=== PATIENT | male | born 1955 | race Caucasian/White ===

== ENCOUNTER 2016-05-08 18:01 | Inpatient (IN) | payer OTHER ==
[2016-05-08 19:16] VITALS: BMI 29.8
--- NOTE | 2016-05-08 20:15 | HP ---
CIWA Score - CIWA Score Nausea/Vomitin-No Nausea/No Vomiting Muscle Tremors: 4-Moderate,w/Arms Extend Anxiety: 4-Mod. Anxious/Guarded Agitation: 3 Paroxysmal Sweats: 3 Orientation: 0-Oriented Tacttile Disturbances: 3-Moderate Itch/Numb/Burn Auditory Disturbances: 0-None Visual Disturbances: 0-None Headache: 0-None Present CIWA-Ar Total Score: 17 Admission ROS BHS - HPI Chief Complaint: WITHDRAWAL SX'S. SEEKING DETOX Allergies/Adverse Reactions: Allergies Allergy/AdvReac Type Severity Reaction Status Date / Time No Known Allergies Allergy Verified 05/08/16 20:09 History of Present Illness: 60 Y.O. MALE WITH EXTENSIVE H/O ALCOHOLISM ADMITTED FOR DETOX TXMENT. CLIENT IS KNOWN TO [facility]. LAST DETOX 2014. DENIES ANY SIGNIFICANT PERIOD OF CLEAN TIME. CLIENT INFORMED LOS FOR TXMENT IS AOUT 5 DAYS. CLIENT VERBALIZED UNDERSTANDING. Exam Limitations: No Limitations - Ebola screening Have you traveled outside of the country in the last 21 days: No Have you had contact with anyone from an Ebola affected area: No Have you been sick,other than usual withdrawal symptoms: No Do you have a fever: No - Review of Systems Constitutional: Chills EENT: reports: No Symptoms Reported Respiratory: reports: No Symptoms reported Cardiac: reports: No Symptoms Reported GI: reports: No Symptoms Reported : reports: No Symptoms Reported Musculoskeletal: reports: Back Pain Integumentary: reports: Dryness, Pruritus, Rash Neuro: reports: No Symptoms reported Endocrine: reports: No Symptoms Reported Hematology: reports: No Symptoms Reported Psychiatric: reports: No Sypmtoms Reported Other Systems: Reviewed and Negative Patient History - Patient Medical History Hx Anemia: No Hx Asthma: Yes (ALBUTEROL INHALER) Hx Chronic Obstructive Pulmonary Disease (COPD): No Hx Cancer: No Hx Cardiac Disorders: No Hx Congestive Heart Failure: No Hx Hypertension: No Hx Hypercholesterolemia: No Hx Pacemaker: No HX Cerebrovascular Accident: No Hx Seizures: No Hx Dementia: No Hx Diabetes: No Hx Gastrointestinal Disorders: No Hx Liver Disease: No Hx Genitourinary Disorders: No Hx Sexually Transmitted Disorders: No Hx Renal Disease (ESRD): No Hx Thyroid Disease: No Hx Human Immunodeficiency Virus (HIV): No (NEGATIVE HX) Hx Hepatitis C: No Hx Depression: No Hx Suicide Attempt: No Hx Bipolar Disorder: No Hx Schizophrenia: No Other Medical History: DENIES - Patient Surgical History Past Surgical History: No Hx Neurologic Surgery: No Hx Cataract Extraction: No Hx Cardiac Surgery: No Hx Lung Surgery: No Hx Breast Surgery: No Hx Breast Biopsy: No Hx Abdominal Surgery: No Hx Appendectomy: No Hx Cholecystectomy: No Hx Genitourinary Surgery: No Hx Section: No Hx Orthopedic Surgery: No Anesthesia Reaction: No - PPD History Previous Implant?: Yes Documented Results: Negative w/o proof Implanted On Prior [facility] Admission?: Yes Date: 08/15/14 PPD to be Administered?: Yes - Smoking Cessation Smoking history: Current every day smoker Have you smoked in the past 12 months: Yes Aproximately how many cigarettes per day: 20 Cigars Per Day: 0 Hx Chewing Tobacco Use: No Initiated information on smoking cessation: Yes 'Breaking Loose' booklet given: 05/08/16 - Substance & Tx. History Hx Alcohol Use: Yes Hx Substance Use: Yes Substance Use Type: Cocaine Hx Substance Use Treatment: Yes - Substances Abused BEER Route: Oral Frequency: Daily Amount used: 6-12 OZ Age of first use: 14 Date of Last Use: 05/08/16 COCAINE Route: Smoking Frequency: Daily Amount used: 50 DOLLARS Age of first use: 17 Date of Last Use: 05/07/16 Family Disease History - Family Disease History Family Disease History: Diabetes: Father (etoh dep.,HTN, ), Heart Disease: Father, Respiratory: Mother (), Other: Father, Mother, Brother ( DRUG OD) Admission Physical Exam BHS - Vital Signs Vital Signs: Vital Signs - 24 hr 05/08/16 19:13 Temperature 97.4 F L Pulse Rate 94 H Respiratory 18 Rate Blood Pressure 115/74 - Physical General Appearance: Yes: Disheveled, Mild Distress, Tremorous HEENTM: Yes: EOMI, Normocephalic, Normal Voice, PAULA, Pharynx Normal Neck: Yes: No masses,lesions,Nodules, Supple, Trachea in good position Breast: Yes: Breast Exam Deferred Cardiology: Yes: Regular Rhythm, Regular Rate, S1, S2 Abdominal: Yes: Normal Bowel Sounds, Non Tender, Soft Genitourinary: Yes: Within Normal Limits Back: Yes: Other (DRYNESS, PRURITIC RASH) Musculoskeletal: Yes: full range of Motion, Gait Steady Extremities: Yes: Normal Capillary Refill, Normal Range of Motion, Non-Tender, Tremors Neurological: Yes: scheme technician II-XII NML intact, Fully Oriented, Alert, Motor Strength 5/5 Integumentary: Yes: Dry, Warm, Hives (NOTE TO UPPER EXTREMITIES), Rash (DRY, PRURITIC RASH NOTED TO UE, BACK. PT REPORTS ALSO ON HIS THIGHS.) Lymphatic: Yes: Within Normal Limits - Diagnostic (1) Asthma Current Visit: Yes Status: Chronic (2) Cocaine dependence Current Visit: Yes Status: Chronic Qualifiers: Substance use status: uncomplicated Qualified Code(s): F14.20 - Cocaine dependence, uncomplicated (3) Nicotine dependence Current Visit: Yes Status: Chronic Qualifiers: Nicotine product type: cigarettes Substance use status: uncomplicated Qualified Code(s): F17.210 - Nicotine dependence, cigarettes, uncomplicated (4) Alcohol dependence with uncomplicated withdrawal Current Visit: Yes Status: Chronic Cleared for Admission [facility] - Detox or Rehab [facility] Level of Care: Medically Managed Detox Regimen/Protocol: Librium BHS Breath Alcohol Content Breath Alcohol Content: 0.058 Vital Signs - Vital Signs Vital Signs Refused: No Temperature: 97.4 F Temperature Source: Oral Pulse Rate: 94 Respiratory Rate: 18 Blood Pressure: 115/74 BP Location: Left Arm Blood Pressure Position: Sitting - Height Height: 6 ft 1 in - Weight Weight: 102.512 kg Weight Measurement Method: Standing Scale Body Mass Index (BMI): 29.8 Urine Drug Screen - Results Drug Screen Negative: No Urine Drug Screen Results: KAREEN-Cocaine
[2016-05-08] MEDS ORDERED: NICOTINE POLACRILEX 2 MG GUM BC PRN (20:26)
[2016-05-08] MEDS ORDERED: MAGNESIUM CITRATE 300 ML BOTTLE PO PRN (20:26)
[2016-05-08] MEDS ORDERED: MENTHOL/PHENOL 1 EACH UD MM PRN (20:26)
[2016-05-08] MEDS ORDERED: P-EPHED 60MG/TRIPROLIDI 2.5MG TABLET PO PRN (20:26)
[2016-05-08] MEDS ORDERED: MAGNESIUM HYDROX 2400MG/30ML ORAL SUSPENSION 30 ML CUP PO PRN (20:26)
[2016-05-08] MEDS ORDERED: ACETAMINOPHEN 325 MG TABLET (FP) PO PRN (20:26)
[2016-05-08] MEDS ORDERED: chlordiazePOXIDE HCL 25 MG CAPSULE PO PRN (20:26)
[2016-05-08] MEDS ORDERED: LOPERAMIDE HCL 2 MG CAPSULE PO PRN (20:26)
[2016-05-08] MEDS ORDERED: guaiFENesin/D-METHORPHAN HB 10 ML UNIT-DOSE CUPS PO PRN (20:26)
[2016-05-08] MEDS ORDERED: IBUPROFEN 400 MG TABLET (FP) PO PRN (20:26)
[2016-05-08] MEDS ORDERED: hydrOXYzine PAMOATE 50 MG CAPSULE (FP) PO PRN (20:26)
[2016-05-08] MEDS ORDERED: HYDROCORTISONE 1% TOPICAL CREAM 30 GM TUBE TP PRN (20:28)
[2016-05-08] MEDS ORDERED: ALBUTEROL SO4 6.7 GM HFA INHALER IH PRN (20:28)
[2016-05-08] MEDS ORDERED: AMMONIUM LACTATE 12% LOTION 225 GM BOTTLE TP PRN (20:29)
[2016-05-08] MEDS: chlordiazePOXIDE HCL 25 MG CAPSULE PO SCH (22:14)
[2016-05-08] MEDS: NICOTINE 21 MG/24 HOURS TOPICAL PATCH TD SCH (22:15)
[2016-05-08] MEDS: diphenhydrAMINE HCL 50 MG CAPSULE PO PRN (22:15)
[2016-05-08] MEDS: THIAMINE HCL 100 MG TABLET (FP) PO SCH (22:15)
[2016-05-09] MEDS: chlordiazePOXIDE HCL 25 MG CAPSULE PO SCH ×4 (05:45→22:13)
--- NOTE | 2016-05-09 09:45 | EKG ---
Test Reason : Blood Pressure : / mmHG Vent. Rate : 078 BPM Atrial Rate : 078 BPM P-R Int : 166 ms QRS Dur : 104 ms QT Int : 364 ms P-R-T Axes : 064 -42 072 degrees QTc Int : 414 ms NORMAL SINUS RHYTHM LEFT AXIS DEVIATION SEPTAL INFARCT , AGE UNDETERMINED ABNORMAL ECG NO PREVIOUS ECGS AVAILABLE POOR DATA QUALITY, INTERPRETATION MAY BE ADVERSELY AFFECTED Confirmed by JHON EVANS MD ([id number]) on 05/09/2016 9:44:42 AM Referred By: Confirmed By:JHON EVANS MD
[2016-05-09 10:16] LABS: MCH 31.9 pg (25.7-33.7); MCHC 32.9 g/dl (32.0-35.9); MEAN CELL VOLUME 97.1 fl (80-96); MEAN PLT VOLUME 12.1 fl (7.5-11.1); PLATELET COUNT 96 K/MM3 (134-434); RDW 15.5 % (11.9-15.9); WHITE BLOOD COUNT 6.6 K/mm3 (4.0-10.0)
[2016-05-09 10:22] LABS: URINE APPEARANCE CLEAR; URINE BILIRUBIN NEGATIVE (NEGATIVE); URINE BLOOD NEGATIVE (NEGATIVE); URINE COLOR YELLOW; URINE GLUCOSE (UA) NEGATIVE (NEGATIVE); URINE KETONE NEGATIVE (NEGATIVE); URINE NITRITE NEGATIVE (NEGATIVE); URINE PROTEIN NEGATIVE (NEGATIVE); URINE UROBILINOGEN NEGATIVE E.U./dl (0.2-1.0)
[2016-05-09 10:23] LABS: URINE LEUK ESTERASE 1+ (NEGATIVE)
[2016-05-09 10:24] LABS: URINE MUCUS RARE; URINE RBC 2 /hpf (0-3); URINE WBC 17 /hpf (3-5)
[2016-05-09] MEDS: PRENATAL VITAMINS W/ FOLIC ACID TABLET (FP) PO SCH (10:41)
[2016-05-09] MEDS: NICOTINE 21 MG/24 HOURS TOPICAL PATCH TD SCH (10:43)
[2016-05-09 10:50] LABS: ALBUMIN 3.2 g/dl (3.4-5.0); ALK PHOS 55 U/L (45-117); ANION GAP 9 (8-16); BILIRUBIN,TOTAL 0.5 mg/dL (0.2-1.0); CALCIUM 8.5 mg/dL (8.5-10.1); CO2 26 mmol/L (21-32); CREATININE 0.9 mg/dL (0.7-1.3); GLUCOSE,RANDOM 108 mg/dL (74-106); SGOT/AST 32 U/L (15-37); SGPT/ALT 36 U/L (12-78); TOT PROT 6.9 g/dl (6.4-8.2)
--- NOTE | 2016-05-09 11:56 | PN ---
[facility] CIWA - CIWA Score Nausea/Vomitin-No Nausea/No Vomiting Muscle Tremors: 4-Moderate,w/Arms Extend Anxiety: 4-Mod. Anxious/Guarded Agitation: 3 Paroxysmal Sweats: 3 Orientation: 0-Oriented Tacttile Disturbances: 0-None Auditory Disturbances: 0-None Visual Disturbances: 0-None Headache: 0-None Present CIWA-Ar Total Score: 14 S Progress Note (SOAP) Subjective: ANXIETY,TREMORS,SWEATING,INTERRUPTED SLEEP,RESTLESS. Objective: 05/09/16 11:52 Vital Signs - 8 hr 05/09/16 05/09/16 06:00 10:00 Temperature 97.9 F 97.9 F Pulse Rate 55 L 70 Respiratory 18 18 Rate Blood Pressure 108/60 120/70 Laboratory Last Values WBC 6.6 K/mm3 (4.0-10.0) 05/09/16 07:20 RBC 4.04 M/mm3 (4.00-5.60) 05/09/16 07:20 Hgb 12.9 GM/dL (11.7-16.9) 05/09/16 07:20 Hct 39.3 % (35.4-49) 05/09/16 07:20 MCV 97.1 fl (80-96) H 05/09/16 07:20 MCHC 32.9 g/dl (32.0-35.9) 05/09/16 07:20 RDW 15.5 % (11.9-15.9) 05/09/16 07:20 Plt Count 96 K/MM3 (134-434) L 05/09/16 07:20 MPV 12.1 fl (7.5-11.1) H 05/09/16 07:20 Sodium 141 mmol/L (136-145) 05/09/16 07:20 Potassium 4.2 mmol/L (3.5-5.1) 05/09/16 07:20 Chloride 106 mmol/L (98-107) 05/09/16 07:20 Carbon Dioxide 26 mmol/L (21-32) 05/09/16 07:20 Anion Gap 9 (8-16) 05/09/16 07:20 BUN 16 mg/dL (7-18) D 05/09/16 07:20 Creatinine 0.9 mg/dL (0.7-1.3) D 05/09/16 07:20 Creat Clearance w eGFR > 60 (>60) 05/09/16 07:20 Random Glucose 108 mg/dL (74-106) H D 05/09/16 07:20 Calcium 8.5 mg/dL (8.5-10.1) 05/09/16 07:20 Total Bilirubin 0.5 mg/dL (0.2-1.0) 05/09/16 07:20 AST 32 U/L (15-37) D 05/09/16 07:20 ALT 36 U/L (12-78) D 05/09/16 07:20 Alkaline Phosphatase 55 U/L (45-117) 05/09/16 07:20 Total Protein 6.9 g/dl (6.4-8.2) 05/09/16 07:20 Albumin 3.2 g/dl (3.4-5.0) L 05/09/16 07:20 Urine Color Yellow 05/09/16 07:20 Urine Appearance Clear 05/09/16 07:20 Urine pH 5.0 (5.0-8.0) 05/09/16 07:20 Ur Specific [place] 1.019 (1.001-1.035) 05/09/16 07:20 Urine Protein Negative (NEGATIVE) 05/09/16 07:20 Urine Glucose (UA) Negative (NEGATIVE) 05/09/16 07:20 Urine Ketones Negative (NEGATIVE) 05/09/16 07:20 Urine Blood Negative (NEGATIVE) 05/09/16 07:20 Urine Nitrite Negative (NEGATIVE) 05/09/16 07:20 Urine Bilirubin Negative (NEGATIVE) 05/09/16 07:20 Urine Urobilinogen Negative E.U./dl (0.2-1.0) 05/09/16 07:20 Ur Leukocyte Esterase 1+ (NEGATIVE) H 05/09/16 07:20 Urine RBC 2 /hpf (0-3) 05/09/16 07:20 Urine WBC 17 /hpf (3-5) 05/09/16 07:20 Ur Epithelial Cells Rare /hpf (FEW) 05/09/16 07:20 Urine Mucus Rare 05/09/16 07:20 LABS NOTED Assessment: 05/09/16 11:56 WITHDRAWAL SX Plan: REPEAT U/A IN AM
[2016-05-09] MEDS: THIAMINE HCL 100 MG TABLET (FP) PO SCH (22:13)
[2016-05-09] MEDS: diphenhydrAMINE HCL 50 MG CAPSULE PO PRN (22:13)
[2016-05-10] MEDS: chlordiazePOXIDE HCL 25 MG CAPSULE PO SCH ×3 (05:01→17:55)
--- NOTE | 2016-05-10 10:01 | PN ---
S CIWA - CIWA Score Nausea/Vomitin-No Nausea/No Vomiting Muscle Tremors: 4-Moderate,w/Arms Extend Anxiety: 3 Agitation: 4-Moderately Restless Paroxysmal Sweats: 3 Orientation: 0-Oriented Tacttile Disturbances: 0-None Auditory Disturbances: 0-None Visual Disturbances: 0-None Headache: 0-None Present CIWA-Ar Total Score: 14 BHS Progress Note (SOAP) Subjective: shakes sweats chills agitation tired Objective: 05/10/16 10:00 Vital Signs Temperature 98.1 F 05/10/16 05:13 Pulse Rate 76 05/10/16 05:13 Respiratory Rate 18 05/10/16 05:13 Blood Pressure 105/63 05/10/16 05:13 O2 Sat by Pulse Oximetry (%) Laboratory Tests 05/09/16 05/09/16 05/09/16 07:20 07:20 07:20 WBC 6.6 RBC 4.04 Hgb 12.9 Hct 39.3 MCV 97.1 H MCHC 32.9 RDW 15.5 Plt Count 96 L MPV 12.1 H Sodium 141 Potassium 4.2 Chloride 106 Carbon Dioxide 26 Anion Gap 9 BUN 16 D Creatinine 0.9 D Creat Clearance w eGFR > 60 Random Glucose 108 H D Calcium 8.5 Total Bilirubin 0.5 AST 32 D ALT 36 D Alkaline Phosphatase 55 Total Protein 6.9 Albumin 3.2 L Urine Color Urine Appearance Urine pH Ur Specific [place] Urine Protein Urine Glucose (UA) Urine Ketones Urine Blood Urine Nitrite Urine Bilirubin Urine Urobilinogen Ur Leukocyte Esterase Urine RBC Urine WBC Ur Epithelial Cells Urine Mucus RPR Titer Nonreactive 05/09/16 07:20 WBC RBC Hgb Hct MCV MCHC RDW Plt Count MPV Sodium Potassium Chloride Carbon Dioxide Anion Gap BUN Creatinine Creat Clearance w eGFR Random Glucose Calcium Total Bilirubin AST ALT Alkaline Phosphatase Total Protein Albumin Urine Color Yellow Urine Appearance Clear Urine pH 5.0 Ur Specific [place] 1.019 Urine Protein Negative Urine Glucose (UA) Negative Urine Ketones Negative Urine Blood Negative Urine Nitrite Negative Urine Bilirubin Negative Urine Urobilinogen Negative Ur Leukocyte Esterase 1+ H Urine RBC 2 Urine WBC 17 Ur Epithelial Cells Rare Urine Mucus Rare RPR Titer awake/alert ambulating no acute distress Assessment: 05/10/16 10:02 withdrawal sx Plan: continue detox increase fluids f/u repeat u/a
[2016-05-10] MEDS: NICOTINE 21 MG/24 HOURS TOPICAL PATCH TD SCH (10:27)
[2016-05-10] MEDS: PRENATAL VITAMINS W/ FOLIC ACID TABLET (FP) PO SCH (10:27)
[2016-05-10] MEDS: MAG HYDROX/AL HYDROX/SIMETH 30 ML UNIT-DOSE CUP PO PRN (12:20)
[2016-05-10 22:06] LABS: URINE APPEARANCE CLEAR; URINE BILIRUBIN NEGATIVE (NEGATIVE); URINE BLOOD NEGATIVE (NEGATIVE); URINE COLOR STRAW; URINE GLUCOSE (UA) NEGATIVE (NEGATIVE); URINE KETONE NEGATIVE (NEGATIVE); URINE LEUK ESTERASE NEGATIVE (NEGATIVE); URINE NITRITE NEGATIVE (NEGATIVE); URINE PROTEIN NEGATIVE (NEGATIVE); URINE UROBILINOGEN NEGATIVE E.U./dl (0.2-1.0)
[2016-05-10] MEDS: chlordiazePOXIDE 5 MG CAPSULE PO SCH (22:12)
[2016-05-10] MEDS: THIAMINE HCL 100 MG TABLET (FP) PO SCH (22:12)
[2016-05-10] MEDS: diphenhydrAMINE HCL 50 MG CAPSULE PO PRN (22:13)
[2016-05-11] MEDS: chlordiazePOXIDE 5 MG CAPSULE PO SCH ×3 (05:20→17:55)
[2016-05-11] MEDS: PRENATAL VITAMINS W/ FOLIC ACID TABLET (FP) PO SCH (10:10)
[2016-05-11] MEDS: NICOTINE 21 MG/24 HOURS TOPICAL PATCH TD SCH (10:11)
--- NOTE | 2016-05-11 11:04 | PN ---
BHS Progress Note (SOAP) Subjective: nausea, sweats, interrupted sleep, anxiety, tremros Objective: 05/11/16 11:02 Vital Signs - 8 hr 05/11/16 05/11/16 05/11/16 03:30 06:16 09:31 Temperature 95.9 F L 98.1 F Pulse Rate 58 L 71 Respiratory 18 16 20 Rate Blood Pressure 109/56 101/59 Laboratory Tests 05/09/16 05/09/16 05/09/16 07:20 07:20 07:20 WBC 6.6 RBC 4.04 Hgb 12.9 Hct 39.3 MCV 97.1 H MCHC 32.9 RDW 15.5 Plt Count 96 L MPV 12.1 H Sodium 141 Potassium 4.2 Chloride 106 Carbon Dioxide 26 Anion Gap 9 BUN 16 D Creatinine 0.9 D Creat Clearance w eGFR > 60 Random Glucose 108 H D Calcium 8.5 Total Bilirubin 0.5 AST 32 D ALT 36 D Alkaline Phosphatase 55 Total Protein 6.9 Albumin 3.2 L Urine Color Urine Appearance Urine pH Ur Specific [place] Urine Protein Urine Glucose (UA) Urine Ketones Urine Blood Urine Nitrite Urine Bilirubin Urine Urobilinogen Ur Leukocyte Esterase Urine RBC Urine WBC Ur Epithelial Cells Urine Mucus RPR Titer Nonreactive 05/09/16 05/10/16 07:20 22:00 WBC RBC Hgb Hct MCV MCHC RDW Plt Count MPV Sodium Potassium Chloride Carbon Dioxide Anion Gap BUN Creatinine Creat Clearance w eGFR Random Glucose Calcium Total Bilirubin AST ALT Alkaline Phosphatase Total Protein Albumin Urine Color Yellow Straw Urine Appearance Clear Clear Urine pH 5.0 7.0 D Ur Specific [place] 1.019 1.008 Urine Protein Negative Negative Urine Glucose (UA) Negative Negative Urine Ketones Negative Negative Urine Blood Negative Negative Urine Nitrite Negative Negative Urine Bilirubin Negative Negative Urine Urobilinogen Negative Negative Ur Leukocyte Esterase 1+ H Negative Urine RBC 2 Urine WBC 17 Ur Epithelial Cells Rare Urine Mucus Rare RPR Titer hypoalbuminemia Assessment: 05/11/16 11:03 withdrawl sx, malnutirtion /hypoalbuminemia 2/2 substance use Plan: cont detox, dietary cousneling:re healthy eating choices and substance use, fluids
[2016-05-11] MEDS: MAG HYDROX/AL HYDROX/SIMETH 30 ML UNIT-DOSE CUP PO PRN (17:38)
[2016-05-11] MEDS: chlordiazePOXIDE HCL 10 MG CAPSULE PO SCH (23:21)
[2016-05-11] MEDS: THIAMINE HCL 100 MG TABLET (FP) PO SCH (23:22)
[2016-05-12] MEDS: chlordiazePOXIDE HCL 10 MG CAPSULE PO SCH (05:44)
[2016-05-12 06:25] VITALS: BP 112/59; PULSE 52; TEMP 97.9
--- NOTE | 2016-05-12 08:39 | DS ---
[facility] Detox Discharge Summary Admission Date: 05/08/16 Discharge Date: 05/12/16 - History Present History: Alcohol Dependence, Cocaine Dependence - Physical Exam Results Vital Signs: Vital Signs Temperature 97.9 F 05/12/16 06:25 Pulse Rate 52 L 05/12/16 06:25 Respiratory Rate 16 05/12/16 06:25 Blood Pressure 112/59 05/12/16 06:25 O2 Sat by Pulse Oximetry (%) - Treatment Hospital Course: Detox Protocol Followed, Detoxed Safely, Responded well, Discharged Condition Good, Rehab Referral Accepted - Medication Discharge Medications: Ambulatory Orders Albuterol Sulfate Inhaler - [Ventolin HFA Inhaler -] 2 puff IH PRN PRN #1 inhaler 12/01/14 - Diagnosis (1) Alcohol dependence with uncomplicated withdrawal Current Visit: Yes Status: Chronic (2) Asthma Current Visit: Yes Status: Chronic (3) Cocaine dependence Current Visit: Yes Status: Chronic Qualifiers: Substance use status: uncomplicated Qualified Code(s): F14.20 - Cocaine dependence, uncomplicated (4) Nicotine dependence Current Visit: Yes Status: Chronic Qualifiers: Nicotine product type: cigarettes Substance use status: uncomplicated Qualified Code(s): F17.210 - Nicotine dependence, cigarettes, uncomplicated (5) Alcohol-induced sleep disorder Current Visit: No Status: Acute (6) Mood disorder Current Visit: No Status: Acute (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
== END 2016-05-12 09:08 | disposition home or self-care (01) | DRG 897 ==
LOC: YASAS 18:01 → Y6N 19:26
PROVIDERS: ADMIT Internal Medicine; ATTEND Internal Medicine
PROC: HZ2ZZZZ Detoxification Services for Substance Abuse Treatment (ICD-10-PCS; principal; 2016-05-12)
DX: F10.230 Alcohol dependence with withdrawal, uncomplicated (principal); F14.20 Cocaine dependence, uncomplicated; F33.9 Major depressive disorder, recurrent, unspecified; F17.210 Nicotine dependence, cigarettes, uncomplicated; F10.282 Alcohol dependence with alcohol-induced sleep disorder; R41.83 Borderline intellectual functioning; E78.5 Hyperlipidemia, unspecified
CPT/HCPCS: 36415; 80053; 81003; 81015; 85027; 86593; 93005; 93010

== ENCOUNTER 2018-10-14 13:34 | Inpatient (IN) | payer OTHER ==
[2018-10-14 14:17] VITALS: BMI 33.1
--- NOTE | 2018-10-14 14:36 | HP ---
CIWA Score Nausea/Vomitin Muscle Tremors: 4-Moderate,w/Arms Extend Anxiety: 3 Agitation: 1-Slight > Activity Paroxysmal Sweats: No Perspiration Orientation: 1-Uncertain about Date Tacttile Disturbances: 1-Very Mild Itch/Numbness Auditory Disturbances: 0-None Visual Disturbances: 1-Very Mild Sensitivity Headache: 3-Moderate CIWA-Ar Total Score: 16 - Admission Criteria [facility] Guidelines: Admission for Medically Managed Detox: Requires at least one of the followin. CIWA greater than 12 2. Seizures within the past 24 hours 3. Delirium tremens within the past 24 hours 4. Hallucinations within the past 24 hours 5. Acute intervention needed for co occurring medical disorder 6. Acute intervention needed for co occurring psychiatric disorder 7. Severe withdrawal that cannot be handled at a lower level of care (continued vomiting, continued diarrhea, abnormal vital signs) requiring intravenous medication and/or fluids 8. Patient presents the following: CIWA greater than 12 Admission Criteria Met: Admission criteria met Admission ROS S - HPI Chief Complaint: I need help, I drink too much and all day, I'm an alcoholic. Allergies/Adverse Reactions: Allergies Allergy/AdvReac Type Severity Reaction Status Date / Time No Known Allergies Allergy Verified 10/14/18 14:10 History of Present Illness: 63 yo gentleman here for detox from alcohol - this is one of multiple admissions for treatment - last time in 2017. Yesterday he 'fell down drunk' and was brought to [facility] ED and given librium (urine tox + bzo) and sent for detox. Patient denies seizures but does get black outs. He is homeless. States he drinks first thing in the morning or else he shakes too much. Patient is homeless - [place] Exam Limitations: No Limitations - Ebola screening Have you traveled outside of the country in the last 21 days: No (N) Have you had contact with anyone from an Ebola affected area: No Do you have a fever: No - Review of Systems Constitutional: Malaise, Changes in sleep, Weakness EENT: reports: No Symptoms Reported Respiratory: reports: No Symptoms reported Cardiac: reports: No Symptoms Reported GI: reports: Poor Appetite, Indigestion, Abdominal cramping : reports: Frequency, Incontinence Musculoskeletal: reports: Back Pain Integumentary: reports: Dryness Neuro: reports: Headache, Numbness, Tingling, Tremors Endocrine: reports: No Symptoms Reported Hematology: reports: No Symptoms Reported Psychiatric: reports: Judgement Intact, Mood/Affect Appropiate, Anxious Other Systems: Reviewed and Negative Patient History - Patient Medical History Hx Anemia: No Hx Asthma: Yes (ALBUTEROL INHALER) Hx Chronic Obstructive Pulmonary Disease (COPD): No Hx Cancer: No Hx Cardiac Disorders: No Hx Congestive Heart Failure: No Hx Hypertension: No Hx Hypercholesterolemia: No Hx Pacemaker: No HX Cerebrovascular Accident: No Hx Seizures: No Hx Dementia: No Hx Diabetes: No Hx Gastrointestinal Disorders: No Hx Liver Disease: No (? cirrhosis - thrombocytopenia) Hx Genitourinary Disorders: Yes (incontinence) Hx Sexually Transmitted Disorders: No Hx Renal Disease (ESRD): No Hx Thyroid Disease: No Hx Human Immunodeficiency Virus (HIV): No (NEGATIVE HX) Hx Hepatitis C: No Hx Depression: No Hx Suicide Attempt: No Hx Bipolar Disorder: No Hx Schizophrenia: No (denies) Other Medical History: back pain; 'foot fungus' - Patient Surgical History Past Surgical History: No Hx Neurologic Surgery: No Hx Cataract Extraction: No Hx Cardiac Surgery: No Hx Lung Surgery: No Hx Breast Surgery: No Hx Breast Biopsy: No Hx Abdominal Surgery: No Hx Appendectomy: No Hx Cholecystectomy: No Hx Genitourinary Surgery: No Hx Section: No Hx Orthopedic Surgery: No Anesthesia Reaction: No - PPD History Previous Implant?: Yes Documented Results: Negative w/proof Implanted On Prior R Admission?: Yes Date: 05/10/16 PPD to be Administered?: Yes - Reproductive History Patient is a Female of Child Bearing Age (11 -55 yrs old): No - Smoking Cessation Smoking history: Current every day smoker Have you smoked in the past 12 months: Yes Aproximately how many cigarettes per day: 20 Cigars Per Day: 0 Hx Chewing Tobacco Use: No Initiated information on smoking cessation: Yes 'Breaking Loose' booklet given: 10/14/18 (give on floor) - Substance & Tx. History Hx Alcohol Use: Yes Hx Substance Use: Yes Substance Use Type: Alcohol, Cocaine Hx Substance Use Treatment: Yes (detox,rehab) - Substances abused Alcohol Substance route: Oral Frequency: Daily Amount used: 6 pk 16 oz beer & 2 pints bacardi Age of first use: 14 Date of last use: 10/14/18 Crack Substance route: Smoking Frequency: Daily Amount used: $50 Age of first use: 17 Date of last use: 10/13/18 Family Disease History - Family Disease History Family Disease History: Diabetes: Father (etoh dep.,HTN, ), Heart Disease: Father, Respiratory: Mother (, water on lungs), Other: Father, Mother, Brother (two - both DRUG OD), Sister (one living - in [place] ), Son (age 18 ) Admission Physical Exam [facility] - Vital Signs Vital Signs: Vital Signs - 24 hr 10/14/18 14:13 Temperature 96.8 F L Pulse Rate 87 Respiratory 18 Rate Blood Pressure 131/75 - Physical General Appearance: Yes: Nourished, Appropriately Dressed, Moderate Distress, Obese, Tremorous, Anxious HEENTM: Yes: EOMI, Hearing grossly Normal, Normocephalic, Normal Voice, Pharynx Normal, Other (poor dentition - missing teeth) Respiratory: Yes: Normal Breath Sounds, No Respiratory Distress Neck: Yes: No masses,lesions,Nodules Breast: Yes: Breast Exam Deferred Cardiology: Yes: Regular Rhythm, Regular Rate Abdominal: Yes: Soft, Protuberent, Distended Genitourinary: Yes: Frequency, Incontinient Back: Yes: Normal Inspection, Decreased Range of Motion Musculoskeletal: Yes: full range of Motion, Gait Steady, Back pain Extremities: Yes: Normal Inspection, Non-Tender, Tremors, Pedal Edema ( bilateral 1+ lower extremity edema) Neurological: Yes: Alert, Normal Mood/Affect, Normal Response, Numbness Integumentary: Yes: Normal Color, Dry, Warm, Other (toes with foul odor and interdigital peeling) Lymphatic: Yes: Within Normal Limits - Diagnostic (1) Alcohol dependence with uncomplicated withdrawal Current Visit: Yes Status: Chronic (2) Cocaine dependence Current Visit: Yes Status: Chronic Qualifiers: Substance use status: uncomplicated Qualified Code(s): F14.20 - Cocaine dependence, uncomplicated (3) Asthma Current Visit: Yes Status: Chronic (4) Nicotine dependence Current Visit: Yes Status: Chronic Qualifiers: Nicotine product type: cigarettes Substance use status: uncomplicated Qualified Code(s): F17.210 - Nicotine dependence, cigarettes, uncomplicated (5) Tinea pedis Current Visit: Yes Status: Chronic Qualifiers: Laterality: bilateral Qualified Code(s): B35.3 - Tinea pedis (6) Thrombocytopenia Current Visit: Yes Status: Chronic Cleared for Admission [facility] - Detox or Rehab [facility] Level of Care: Medically Managed Detox Regimen/Protocol: Librium Urine Drug Screen - Results Urine drug screen results: BZO-Benzodiazepines Inpatient Rehab Admission - Rehab Decision to Admit Inpatient rehab admission?: No
[2018-10-14] MEDS ORDERED: BISMUTH SUBSALICYLATE 524 MG/30 ML UD PO PRN (14:50)
[2018-10-14] MEDS ORDERED: MENTHOL/PHENOL 1 EACH UD MM PRN (14:50)
[2018-10-14] MEDS ORDERED: MAG HYDROX/AL HYDROX/SIMETH 30 ML UNIT-DOSE CUP PO PRN (14:50)
[2018-10-14] MEDS ORDERED: MAGNESIUM CITRATE 300 ML BOTTLE PO PRN (14:50)
[2018-10-14] MEDS ORDERED: ACETAMINOPHEN 325 MG TABLET (FP) PO PRN (14:50)
[2018-10-14] MEDS ORDERED: MAGNESIUM HYDROX 2400MG/30ML ORAL SUSPENSION 30 ML CUP PO PRN (14:50)
[2018-10-14] MEDS ORDERED: chlordiazePOXIDE HCL 25 MG CAPSULE PO PRN (14:50)
[2018-10-14] MEDS ORDERED: chlordiazePOXIDE HCL 25 MG CAPSULE PO ONE (14:50)
[2018-10-14] MEDS ORDERED: hydrOXYzine PAMOATE 25 MG CAPSULE (FP) PO PRN (14:50)
[2018-10-14] MEDS ORDERED: ALBUTEROL SO4 8 GM HFA INHALER IH PRN (14:51)
[2018-10-14] MEDS: chlordiazePOXIDE HCL 25 MG CAPSULE PO SCH ×2 (17:33→22:36)
[2018-10-14] MEDS: LIDOCAINE 5% TOPICAL PATCH TP SCH (17:41)
[2018-10-14] MEDS: THIAMINE HCL 100 MG TABLET (FP) PO SCH (22:36)
[2018-10-14] MEDS: TOLNAFTATE 1% CREAM 15 GM TUBE TP SCH (22:39)
[2018-10-14] MEDS: LIDOCAINE PATCH REMOVAL MC SCH (23:10)
[2018-10-15] MEDS: chlordiazePOXIDE HCL 25 MG CAPSULE PO SCH ×4 (05:50→23:35)
[2018-10-15] MEDS: METHOCARBAMOL 500 MG TABLET PO PRN ×2 (05:52→22:41)
[2018-10-15] MEDS: PRENATAL VITAMINS W/ FOLIC ACID TABLET (FP) PO SCH (10:23)
[2018-10-15] MEDS: TOLNAFTATE 1% CREAM 15 GM TUBE TP SCH ×2 (10:23→22:40)
[2018-10-15] MEDS: LIDOCAINE 5% TOPICAL PATCH TP SCH (10:24)
[2018-10-15 11:09] LABS: ALBUMIN 3.1 g/dl (3.4-5.0); BLOOD UREA NITROGEN 10.9 mg/dL (7-18); CALCIUM 8.3 mg/dL (8.5-10.1); CREATININE 0.9 mg/dL (0.55-1.3); POTASSIUM 3.8 mmol/L (3.5-5.1); TOT PROT 6.9 g/dl (6.4-8.2)
[2018-10-15 11:11] LABS: MCH 32.1 pg (25.7-33.7)
[2018-10-15 11:53] LABS: HEMATOCRIT 37.2 % (35.4-49); HEMOGLOBIN 12.4 GM/dL (11.7-16.9); MCHC 33.3 g/dl (32.0-35.9); MEAN CELL VOLUME 96.3 fl (80-96); MEAN PLT VOLUME 11.8 fl (7.5-11.1); RBC 3.86 M/mm3 (4.00-5.60); RDW 15.7 % (11.9-15.9); WHITE BLOOD COUNT 4.4 K/mm3 (4.0-10.0)
[2018-10-15 11:56] LABS: PLATELET COUNT 73 K/MM3 (134-434)
--- NOTE | 2018-10-15 16:50 | PN ---
S CIWA - CIWA Score Nausea/Vomitin-No Nausea/No Vomiting Muscle Tremors: None Anxiety: 3 Agitation: 1-Slight > Activity Paroxysmal Sweats: No Perspiration Orientation: 2-Disoriented Date<2 days Tacttile Disturbances: 1-Very Mild Itch/Numbness Auditory Disturbances: 0-None Visual Disturbances: 2-Mild Sensitivity Headache: 0-None Present CIWA-Ar Total Score: 9 BHS Progress Note (SOAP) Subjective: Body Aches, Anxious. Objective: PATIENT A & O X 2 (UNCERTAIN ABOUT CURRENT DAY / DATE). PATIENT OBSERVED AMBULATING ON UNIT UNASSISTED. IN NO ACUTE DISTRESS. 10/15/18 16:47 Vital Signs Temperature 97.5 F L 10/15/18 13:23 Pulse Rate 68 10/15/18 15:30 Respiratory Rate 18 10/15/18 15:30 Blood Pressure 135/71 10/15/18 13:23 O2 Sat by Pulse Oximetry (%) Laboratory Tests 10/15/18 10/15/18 10/15/18 07:42 07:42 07:42 WBC 4.4 RBC 3.86 L Hgb 12.4 Hct 37.2 MCV 96.3 H MCH 32.1 MCHC 33.3 RDW 15.7 Plt Count 73 L D MPV 11.8 H Sodium 144 Potassium 3.8 Chloride 110 H Carbon Dioxide 30 Anion Gap 3 L BUN 10.9 Creatinine 0.9 Est GFR (CKD-EPI)AfAm 105.72 Est GFR (CKD-EPI)NonAf 91.22 Random Glucose 135 H Calcium 8.3 L Total Bilirubin 1.0 AST 39 H ALT 31 Alkaline Phosphatase 62 Total Protein 6.9 Albumin 3.1 L RPR Titer Nonreactive LABS NOTED. RESULTS OF ADMISSION TB / QFT TEST PENDING. PATIENT HAS HAD LOW PLATELET LEVELS ON PREVIOUS ADMISSIONS. 10/15/18 16:48 Assessment: 10/15/18 16:48 WITHDRAWAL SYMPTOMS. THROMBOCYTOPENIA. Plan: CONTINUE DETOX. INCREASE DAILY PO WATER INTAKE. BGM ACBK FOR ELEVATED ADMISSION RANDOM GLUCOSE LEVEL.
[2018-10-15] MEDS: LIDOCAINE PATCH REMOVAL MC SCH (22:39)
[2018-10-15] MEDS: THIAMINE HCL 100 MG TABLET (FP) PO SCH (22:41)
[2018-10-15] MEDS: MELATONIN 5 MG TABLETS PO PRN (22:41)
[2018-10-16] MEDS: chlordiazePOXIDE HCL 25 MG CAPSULE PO SCH ×4 (07:58→22:28)
[2018-10-16] MEDS: PRENATAL VITAMINS W/ FOLIC ACID TABLET (FP) PO SCH (10:16)
[2018-10-16] MEDS: TOLNAFTATE 1% CREAM 15 GM TUBE TP SCH ×2 (10:16→23:09)
[2018-10-16] MEDS: METHOCARBAMOL 500 MG TABLET PO PRN (10:17)
--- NOTE | 2018-10-16 11:55 | PN ---
S CIWA - CIWA Score Nausea/Vomitin-No Nausea/No Vomiting Muscle Tremors: 2 Anxiety: 2 Agitation: 2 Paroxysmal Sweats: 2 Orientation: 0-Oriented Tacttile Disturbances: 0-None Auditory Disturbances: 0-None Visual Disturbances: 0-None Headache: 0-None Present CIWA-Ar Total Score: 8 BHS Progress Note (SOAP) Subjective: low back pain sweats Objective: 10/16/18 11:53 Vital Signs Temperature 98.0 F 10/16/18 09:33 Pulse Rate 73 10/16/18 09:33 Respiratory Rate 18 10/16/18 09:33 Blood Pressure 149/76 10/16/18 09:33 O2 Sat by Pulse Oximetry (%) Laboratory Tests 10/15/18 10/15/18 10/15/18 07:42 07:42 07:42 WBC 4.4 RBC 3.86 L Hgb 12.4 Hct 37.2 MCV 96.3 H MCH 32.1 MCHC 33.3 RDW 15.7 Plt Count 73 L D MPV 11.8 H Sodium 144 Potassium 3.8 Chloride 110 H Carbon Dioxide 30 Anion Gap 3 L BUN 10.9 Creatinine 0.9 Est GFR (CKD-EPI)AfAm 105.72 Est GFR (CKD-EPI)NonAf 91.22 POC Glucometer Random Glucose 135 H Calcium 8.3 L Total Bilirubin 1.0 AST 39 H ALT 31 Alkaline Phosphatase 62 Total Protein 6.9 Albumin 3.1 L RPR Titer Nonreactive 10/16/18 06:13 WBC RBC Hgb Hct MCV MCH MCHC RDW Plt Count MPV Sodium Potassium Chloride Carbon Dioxide Anion Gap BUN Creatinine Est GFR (CKD-EPI)AfAm Est GFR (CKD-EPI)NonAf POC Glucometer 105 Random Glucose Calcium Total Bilirubin AST ALT Alkaline Phosphatase Total Protein Albumin RPR Titer labs noted aaox3 ambulating no acute distress Assessment: 10/16/18 11:54 mild withdrawal sx Plan: continue detox increase fluids
[2018-10-16] MEDS: LIDOCAINE 5% TOPICAL PATCH TP SCH (14:20)
[2018-10-16] MEDS ORDERED: hydrOXYzine HCL 25 MG TABLET (FP) PO PRN (16:57)
[2018-10-16] MEDS: THIAMINE HCL 100 MG TABLET (FP) PO SCH (22:28)
[2018-10-16] MEDS: MELATONIN 5 MG TABLETS PO PRN (22:29)
[2018-10-16] MEDS: LIDOCAINE PATCH REMOVAL MC SCH (23:09)
[2018-10-17] MEDS ORDERED: chlordiazePOXIDE HCL 10 MG CAPSULE PO PRN
[2018-10-17] MEDS: chlordiazePOXIDE HCL 10 MG CAPSULE PO SCH ×4 (05:45→22:36)
[2018-10-17] MEDS: PRENATAL VITAMINS W/ FOLIC ACID TABLET (FP) PO SCH (10:08)
[2018-10-17] MEDS: TOLNAFTATE 1% CREAM 15 GM TUBE TP SCH ×2 (10:08→22:36)
[2018-10-17] MEDS: LIDOCAINE 5% TOPICAL PATCH TP SCH (10:08)
--- NOTE | 2018-10-17 10:49 | PN ---
BHS CIWA - CIWA Score Nausea/Vomitin-No Nausea/No Vomiting Muscle Tremors: 2 Anxiety: 1-Mildly Anxious Agitation: 1-Slight > Activity Paroxysmal Sweats: 1-Minimal Palms Moist Orientation: 0-Oriented Tacttile Disturbances: 0-None Auditory Disturbances: 0-None Visual Disturbances: 0-None Headache: 0-None Present CIWA-Ar Total Score: 5 BHS Progress Note (SOAP) Subjective: feeling much better mild low back pain i need to get a lesser dose of librium and be d/c tomorrow Objective: 10/17/18 10:48 Vital Signs Temperature 97.9 F 10/17/18 09:41 Pulse Rate 63 10/17/18 09:41 Respiratory Rate 18 10/17/18 09:41 Blood Pressure 115/64 10/17/18 09:41 O2 Sat by Pulse Oximetry (%) aaox3 ambulating no acute distress Assessment: 10/17/18 10:49 mild withdrawal sx Plan: continue detox with modified dose increase fluids motrin 800mg prn d/c in am
[2018-10-17] MEDS ORDERED: IBUPROFEN 400 MG TABLET (FP) PO PRN (10:50)
[2018-10-17] MEDS: THIAMINE HCL 100 MG TABLET (FP) PO SCH (22:36)
[2018-10-17] MEDS: MELATONIN 5 MG TABLETS PO PRN (22:37)
[2018-10-17] MEDS: LIDOCAINE PATCH REMOVAL MC SCH (23:08)
[2018-10-18] MEDS ORDERED: chlordiazePOXIDE HCL 10 MG CAPSULE PO SCH (05:00)
[2018-10-18] MEDS: LIDOCAINE 5% TOPICAL PATCH TP SCH (09:14)
[2018-10-18] MEDS: PRENATAL VITAMINS W/ FOLIC ACID TABLET (FP) PO SCH (09:14)
[2018-10-18] MEDS: TOLNAFTATE 1% CREAM 15 GM TUBE TP SCH (09:14)
--- NOTE | 2018-10-18 09:24 | DS ---
[facility] Detox Discharge Summary Admission Date: 10/14/18 Discharge Date: 10/18/18 - History Present History: Alcohol Dependence, Cocaine Dependence - Physical Exam Results Vital Signs: Vital Signs Temperature 98.4 F 10/18/18 06:40 Pulse Rate 50 L 10/18/18 06:40 Respiratory Rate 18 10/18/18 06:40 Blood Pressure 123/79 10/18/18 06:40 O2 Sat by Pulse Oximetry (%) - Treatment Hospital Course: Detox Protocol Followed, Detoxed Safely, Responded well, Discharged Condition Good, Rehab Referral Accepted - Medication Discharge Medications: Ambulatory Orders Albuterol Sulfate Inhaler - [Ventolin HFA Inhaler -] 2 puff IH PRN PRN #1 inhaler 05/12/16 - Diagnosis (1) Alcohol dependence with uncomplicated withdrawal Current Visit: Yes Status: Chronic (2) Asthma Current Visit: Yes Status: Chronic (3) Cocaine dependence Current Visit: Yes Status: Chronic Qualifiers: Substance use status: uncomplicated Qualified Code(s): F14.20 - Cocaine dependence, uncomplicated (4) Nicotine dependence Current Visit: Yes Status: Chronic Qualifiers: Nicotine product type: cigarettes Substance use status: uncomplicated Qualified Code(s): F17.210 - Nicotine dependence, cigarettes, uncomplicated (5) Thrombocytopenia Current Visit: Yes Status: Chronic (6) Tinea pedis Current Visit: Yes Status: Chronic Qualifiers: Laterality: bilateral Qualified Code(s): B35.3 - Tinea pedis (7) Alcohol-induced sleep disorder Current Visit: No Status: Acute (8) Mood disorder Current Visit: No Status: Acute (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
[2018-10-18 09:36] VITALS: BP 106/62; PULSE 79; TEMP 97
[2018-10-19] MEDS ORDERED: chlordiazePOXIDE HCL 10 MG CAPSULE PO ONE (05:00)
== END 2018-10-18 10:57 | disposition home or self-care (01) | DRG 897 ==
LOC: YASAS 13:34 → Y6N 15:00
PROVIDERS: ADMIT Surgery; ATTEND Surgery
PROC: HZ2ZZZZ Detoxification Services for Substance Abuse Treatment (ICD-10-PCS; principal; 2018-10-14)
DX: F10.230 Alcohol dependence with withdrawal, uncomplicated (principal); F14.20 Cocaine dependence, uncomplicated; F19.282 Other psychoactive substance dependence with psychoactive substance-induced sleep disorder; F17.210 Nicotine dependence, cigarettes, uncomplicated; F39 Unspecified mood [affective] disorder; D69.6 Thrombocytopenia, unspecified; J45.909 Unspecified asthma, uncomplicated; B35.3 Tinea pedis; E78.5 Hyperlipidemia, unspecified; R41.83 Borderline intellectual functioning
CPT/HCPCS: 36415; 80053; 82962; 85027; 86480; 86593

== ENCOUNTER 2019-02-11 09:48 | Inpatient (IN) | payer OTHER ==
[2019-02-11 10:07] VITALS: BMI 33.1
--- NOTE | 2019-02-11 11:58 | HP ---
CIWA Score Nausea/Vomitin-Mild Nausea/No Vomiting Muscle Tremors: 3 Anxiety: 4-Mod. Anxious/Guarded Agitation: 4-Moderately Restless Paroxysmal Sweats: 2 Orientation: 1-Uncertain about Date Tacttile Disturbances: 0-None Auditory Disturbances: 0-None Visual Disturbances: 0-None Headache: 2-Mild CIWA-Ar Total Score: 17 - Admission Criteria OASAS Guidelines: Admission for Medically Managed Detox: Requires at least one of the followin. CIWA greater than 12 2. Seizures within the past 24 hours 3. Delirium tremens within the past 24 hours 4. Hallucinations within the past 24 hours 5. Acute intervention needed for co occurring medical disorder 6. Acute intervention needed for co occurring psychiatric disorder 7. Severe withdrawal that cannot be handled at a lower level of care (continued vomiting, continued diarrhea, abnormal vital signs) requiring intravenous medication and/or fluids 8. Admitting History and Physical - Smoking History Smoking history: Current every day smoker Have you smoked in the past 12 months: Yes Aproximately how many cigarettes per day: 20 - Alcohol/Substance Use Hx Alcohol Use: Yes Admission ROS [facility] Chief Complaint: i need to go upstairs Allergies/Adverse Reactions: Allergies Allergy/AdvReac Type Severity Reaction Status Date / Time No Known Allergies Allergy Verified 02/11/19 09:52 History of Present Illness: continous pattern of etoh use without ability to decrease hx limited by pt being anxious to get to floor - Ebola screening Have you traveled outside of the country in the last 21 days: No (N) Have you had contact with anyone from an Ebola affected area: No Do you have a fever: No - Review of Systems Constitutional: Changes in sleep EENT: reports: No Symptoms Reported Respiratory: reports: No Symptoms reported Cardiac: reports: No Symptoms Reported GI: reports: Abdominal cramping : reports: No Symptoms Reported Musculoskeletal: reports: No Symptoms Reported Integumentary: reports: No Symptoms Reported Neuro: reports: No Symptoms reported Endocrine: reports: No Symptoms Reported Hematology: reports: No Symptoms Reported Psychiatric: reports: Anxious Patient History - Patient Medical History Hx Anemia: No Hx Asthma: Yes Hx Chronic Obstructive Pulmonary Disease (COPD): No Hx Cancer: No Hx Cardiac Disorders: No Hx Congestive Heart Failure: No Hx Hypertension: No Hx Hypercholesterolemia: No Hx Pacemaker: No HX Cerebrovascular Accident: No Hx Seizures: No Hx Dementia: No Hx Diabetes: No Hx Gastrointestinal Disorders: No Hx Liver Disease: No (? cirrhosis - thrombocytopenia) Hx Genitourinary Disorders: No Hx Sexually Transmitted Disorders: No Hx Renal Disease (ESRD): No Hx Thyroid Disease: No Hx Human Immunodeficiency Virus (HIV): No (NEGATIVE HX) Hx Hepatitis C: No Hx Depression: No Hx Suicide Attempt: No Hx Bipolar Disorder: No Hx Schizophrenia: No (denies) - Patient Surgical History Past Surgical History: No Hx Neurologic Surgery: No Hx Cataract Extraction: No Hx Cardiac Surgery: No Hx Lung Surgery: No Hx Breast Surgery: No Hx Breast Biopsy: No Hx Abdominal Surgery: No Hx Appendectomy: No Hx Cholecystectomy: No Hx Genitourinary Surgery: No Hx Section: No Hx Orthopedic Surgery: No Anesthesia Reaction: No - PPD History Date: 05/10/16 - Smoking Cessation Smoking history: Current every day smoker Have you smoked in the past 12 months: Yes Aproximately how many cigarettes per day: 20 Cigars Per Day: 0 Hx Chewing Tobacco Use: No Initiated information on smoking cessation: Yes 'Breaking Loose' booklet given: 02/11/19 - Substances abused Alcohol Substance route: Oral Frequency: Daily Amount used: 4 6pk 16 oz beer & 2 pints bacardi Age of first use: 14 Date of last use: 02/11/19 Crack Substance route: Smoking Frequency: Daily Amount used: $50-$100 Age of first use: 17 Date of last use: 02/10/19 Admission Physical Exam BHS - Vital Signs Vital Signs: Vital Signs - 24 hr 02/11/19 09:50 Temperature 97.0 F L Pulse Rate 97 H Respiratory 19 Rate Blood Pressure 111/61 - Physical General Appearance: Yes: No Apparent Distress, Nourished, Appropriately Dressed HEENTM: Yes: EOMI, Hearing grossly Normal, Normal ENT Inspection, Normocephalic Respiratory: Yes: Chest Non-Tender, Lungs Clear Neck: Yes: Within Normal Limits Cardiology: Yes: Within Normal Limits, Regular Rhythm, Regular Rate Abdominal: Yes: Normal Bowel Sounds, Non Tender Back: Yes: Normal Inspection Musculoskeletal: Yes: Within Normal Limits, full range of Motion, Gait Steady Extremities: Yes: Normal Capillary Refill, Normal Inspection, Normal Range of Motion 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, Alert, Motor Strength 5/5 Integumentary: Yes: Other (dry skin) - Diagnostic (1) Alcohol dependence with uncomplicated withdrawal Current Visit: Yes Status: Chronic (2) Cocaine dependence Current Visit: No Status: Chronic Qualifiers: Substance use status: uncomplicated Qualified Code(s): F14.20 - Cocaine dependence, uncomplicated (3) Nicotine dependence Current Visit: Yes Status: Chronic Qualifiers: Nicotine product type: cigarettes Substance use status: uncomplicated Qualified Code(s): F17.210 - Nicotine dependence, cigarettes, uncomplicated (4) Thrombocytopenia Current Visit: Yes Status: Chronic Cleared for Admission S - Detox or Rehab [facility] Level of Care: Medically Managed Breathalyzer - Breathalyzer Breathalyzer: 0 Urine Drug Screen - Test Device Lot number: [id number] Expiration date: 10/08/20 - Control Is test valid?: Yes - Results Drug screen NEGATIVE: No Urine drug screen results: [facility]-Cocaine Inpatient Rehab Admission - Rehab Decision to Admit Inpatient rehab admission?: No
[2019-02-11] MEDS ORDERED: MENTHOL/PHENOL 1 EACH UD MM PRN (12:09)
[2019-02-11] MEDS ORDERED: ACETAMINOPHEN 325 MG TABLET (FP) PO PRN ×2 (12:09)
[2019-02-11] MEDS ORDERED: METHOCARBAMOL 500 MG TABLET PO PRN (12:09)
[2019-02-11] MEDS ORDERED: hydrOXYzine PAMOATE 25 MG CAPSULE (FP) PO PRN (12:09)
[2019-02-11] MEDS ORDERED: MAGNESIUM HYDROX 2400MG/30ML ORAL SUSPENSION 30 ML CUP PO PRN (12:09)
[2019-02-11] MEDS ORDERED: IBUPROFEN 400 MG TABLET (FP) PO PRN (12:09)
[2019-02-11] MEDS ORDERED: LORazepam 1 MG TABLET PO PRN (12:09)
[2019-02-11] MEDS ORDERED: MAGNESIUM CITRATE 300 ML BOTTLE PO PRN (12:09)
[2019-02-11] MEDS ORDERED: MAG HYDROX/AL HYDROX/SIMETH 30 ML UNIT-DOSE CUP PO PRN (12:09)
[2019-02-11] MEDS ORDERED: BISMUTH SUBSALICYLATE 524 MG/30 ML UD PO PRN (12:09)
[2019-02-11] MEDS ORDERED: ALBUTEROL SO4 8 GM HFA INHALER IH PRN (12:16)
[2019-02-11] MEDS ORDERED: AMMONIUM LACTATE 12% LOTION 225 GM BOTTLE TP PRN (12:18)
[2019-02-11] MEDS: LORazepam 2 MG TABLET PO SCH ×2 (17:47→22:42)
[2019-02-11] MEDS ORDERED: THIAMINE HCL 100 MG TABLET (FP) PO SCH (22:00)
[2019-02-11] MEDS ORDERED: MELATONIN 5 MG TABLETS PO PRN (22:00)
[2019-02-12] MEDS: LORazepam 2 MG TABLET PO SCH ×2 (05:19→10:08)
[2019-02-12] MEDS ORDERED: PRENATAL VITAMINS W/ FOLIC ACID TABLET (FP) PO SCH (10:00)
[2019-02-12 10:04] LABS: HEMOGLOBIN 12.9 GM/dL (11.7-16.9); MCHC 33.1 g/dl (32.0-35.9); MEAN CELL VOLUME 96.6 fl (80-96); MEAN PLT VOLUME 11.9 fl (7.5-11.1); PLATELET COUNT 72 K/MM3 (134-434); RBC 4.04 M/mm3 (4.00-5.60); RDW 15.3 % (11.9-15.9); WHITE BLOOD COUNT 4.4 K/mm3 (4.0-10.0)
[2019-02-12 10:11] LABS: ALBUMIN 3.2 g/dl (3.4-5.0); BILIRUBIN,TOTAL 0.6 mg/dL (0.2-1); BLOOD UREA NITROGEN 10.4 mg/dL (7-18); CALCIUM 8.6 mg/dL (8.5-10.1); CREATININE 0.9 mg/dL (0.55-1.3); POTASSIUM 4.1 mmol/L (3.5-5.1); TOT PROT 6.8 g/dl (6.4-8.2)
[2019-02-12] MEDS ORDERED: FLU VACCINE QUAD 60 MCG/0.5 ML (MDV 19-20) IM ONE (12:00)
--- NOTE | 2019-02-12 13:11 | DS ---
[facility] Detox Discharge Summary Admission Date: 02/11/19 Discharge Date: 02/12/19 - History Present History: Alcohol Dependence Additional Comments: 63 years old male admitted on 02/11/19 for alcohol withdrawal sx management treated with ativan detox regimen patient tolerated well patient is alert oriented x 3 speech clearly coherently insists to leave the detox without apparent reason refuses ciwa refuses exist physical examine Pertinent Past History: health teaching on asthma related cigarette smoking respiratory distress - Physical Exam Results Vital Signs: Vital Signs Temperature 97.1 F L 02/12/19 09:16 Pulse Rate 95 H 02/12/19 09:16 Respiratory Rate 19 02/12/19 09:16 Blood Pressure 117/77 02/12/19 09:16 O2 Sat by Pulse Oximetry (%) Pertinent Admission Physical Exam Findings: alcohol withdrawal sx Laboratory Last Values WBC 4.4 K/mm3 (4.0-10.0) 02/12/19 08:00 RBC 4.04 M/mm3 (4.00-5.60) 02/12/19 08:00 Hgb 12.9 GM/dL (11.7-16.9) 02/12/19 08:00 Hct 39.0 % (35.4-49) 02/12/19 08:00 MCV 96.6 fl (80-96) H 02/12/19 08:00 MCH 32.0 pg (25.7-33.7) 02/12/19 08:00 MCHC 33.1 g/dl (32.0-35.9) 02/12/19 08:00 RDW 15.3 % (11.9-15.9) 02/12/19 08:00 Plt Count 72 K/MM3 (134-434) L 02/12/19 08:00 MPV 11.9 fl (7.5-11.1) H 02/12/19 08:00 Sodium 142 mmol/L (136-145) 02/12/19 08:00 Potassium 4.1 mmol/L (3.5-5.1) 02/12/19 08:00 Chloride 108 mmol/L (98-107) H 02/12/19 08:00 Carbon Dioxide 31 mmol/L (21-32) 02/12/19 08:00 Anion Gap 3 MMOL/L (8-16) L 02/12/19 08:00 BUN 10.4 mg/dL (7-18) 02/12/19 08:00 Creatinine 0.9 mg/dL (0.55-1.3) 02/12/19 08:00 Est GFR (CKD-EPI)AfAm 105.72 02/12/19 08:00 Est GFR (CKD-EPI)NonAf 91.22 02/12/19 08:00 Random Glucose 84 mg/dL (74-106) 02/12/19 08:00 Calcium 8.6 mg/dL (8.5-10.1) 02/12/19 08:00 Total Bilirubin 0.6 mg/dL (0.2-1) 02/12/19 08:00 AST 29 U/L (15-37) 02/12/19 08:00 ALT 28 U/L (13-61) 02/12/19 08:00 Alkaline Phosphatase 63 U/L (45-117) 02/12/19 08:00 Total Protein 6.8 g/dl (6.4-8.2) 02/12/19 08:00 Albumin 3.2 g/dl (3.4-5.0) L 02/12/19 08:00 RPR Titer Nonreactive (NONREACTIVE) 02/12/19 08:00 lab noted - Treatment Hospital Course: Detox Protocol Followed, Responded well Patient has Accepted a Rehab Referral to: community support appraoch - Medication Discharge Medications: Ambulatory Orders Albuterol Sulfate Inhaler - [Ventolin HFA Inhaler -] 2 puff IH PRN PRN #1 inhaler 05/12/16 - Diagnosis (1) Alcohol dependence with uncomplicated withdrawal Current Visit: Yes Status: Acute (2) Nicotine dependence Current Visit: Yes Status: Acute Qualifiers: Nicotine product type: cigarettes Substance use status: in withdrawal Qualified Code(s): F17.213 - Nicotine dependence, cigarettes, with withdrawal (3) Asthma Current Visit: Yes Status: Chronic - AMA Did Patient Leave Against Medical Advice: Yes
[2019-02-12 13:22] VITALS: BP 134/83; PULSE 83; TEMP 97.9
[2019-02-13] MEDS ORDERED: LORazepam 1 MG TABLET PO SCH (05:00)
[2019-02-14] MEDS ORDERED: LORazepam 0.5 MG TABLET PO PRN
[2019-02-14] MEDS ORDERED: LORazepam 0.5 MG TABLET PO SCH (05:00)
[2019-02-15] MEDS ORDERED: LORazepam 0.5 MG TABLET PO ONE (05:00)
== END 2019-02-12 13:42 | disposition left against medical advice (07) | DRG 894 ==
LOC: YASAS 09:48 → Y3N 12:04
PROVIDERS: ADMIT Allergy & Immunology; ATTEND Allergy & Immunology
PROC: HZ2ZZZZ Detoxification Services for Substance Abuse Treatment (ICD-10-PCS; principal; 2019-02-11)
DX: F10.230 Alcohol dependence with withdrawal, uncomplicated (principal); F14.20 Cocaine dependence, uncomplicated; F17.213 Nicotine dependence, cigarettes, with withdrawal; J45.909 Unspecified asthma, uncomplicated; D69.6 Thrombocytopenia, unspecified
CPT/HCPCS: 36415; 80053; 85027; 86593

== ENCOUNTER 2021-05-26 14:44 | Inpatient (IN) | payer OTHER ==
[2021-05-26] MEDS ORDERED: MAG HYDROX/AL HYDROX/SIMETH 30 ML UNIT-DOSE CUP PO PRN (17:38)
[2021-05-26] MEDS ORDERED: MAGNESIUM CITRATE 300 ML BOTTLE PO PRN (17:38)
[2021-05-26] MEDS ORDERED: LOPERAMIDE HCL 2 MG CAPSULE PO PRN (17:38)
[2021-05-26] MEDS ORDERED: MAGNESIUM HYDROX 2400MG/30ML ORAL SUSPENSION 30 ML CUP PO PRN (17:38)
[2021-05-26] MEDS ORDERED: ACETAMINOPHEN 325 MG TABLET (FP) PO PRN (17:38)
[2021-05-26] MEDS ORDERED: ONDANSETRON *ODT* 4 MG TABLET SL PRN (17:38)
[2021-05-26] MEDS ORDERED: BISMUTH SUBSALICYLATE 524 MG/30 ML PO PRN (17:38)
[2021-05-26] MEDS ORDERED: IBUPROFEN 400 MG TABLET (FP) PO PRN (17:38)
[2021-05-26] MEDS ORDERED: MENTHOL/PHENOL 1 EACH UD MM PRN (17:38)
[2021-05-26] MEDS ORDERED: ALBUTEROL SO4 HFA INHALER IH PRN (17:40)
[2021-05-26 18:38] VITALS: BMI 28.6
[2021-05-26] MEDS: MELATONIN 5 MG TABLETS PO PRN (23:10)
[2021-05-26] MEDS: hydrOXYzine PAMOATE 25 MG CAPSULE (FP) PO PRN (23:10)
[2021-05-26] MEDS: THIAMINE HCL 100 MG TABLET (FP) PO SCH (23:10)
[2021-05-27] MEDS: METHOCARBAMOL 500 MG TABLET PO PRN ×2 (10:54→18:39)
[2021-05-27] MEDS: PRENATAL VITAMINS W/ FOLIC ACID TABLET (FP) PO SCH (10:54)
[2021-05-27 10:55] LABS: HEMOGLOBIN 10.7 GM/dL (11.7-16.9); MEAN CELL VOLUME 96.6 fl (80-96); WHITE BLOOD COUNT 3.2 K/mm3 (4.0-10.0)
[2021-05-27] MEDS: hydrOXYzine PAMOATE 25 MG CAPSULE (FP) PO PRN (10:55)
[2021-05-27] MEDS: ACETAMINOPHEN 325 MG TABLET (FP) PO PRN (10:56)
[2021-05-27 10:58] LABS: HEMATOCRIT 32.6 % (35.4-49); MCH 31.6 pg (25.7-33.7); MCHC 32.7 g/dl (32.0-35.9); MEAN PLT VOLUME 11.9 fl (7.5-11.1); PLATELET COUNT 52 10^3/uL (134-434); RBC 3.38 M/mm3 (4.00-5.60); RDW 16.8 % (11.9-15.9)
[2021-05-27] MEDS ORDERED: chlordiazePOXIDE HCL 25 MG CAPSULE PO PRN (11:39)
[2021-05-27] MEDS ORDERED: PNEUMOCOCCAL 23 VACCINE 0.5 ML VIAL IM ONE (12:00)
[2021-05-27] MEDS: FUROSEMIDE 40 MG TABLET (FP) PO SCH (12:41)
[2021-05-27] MEDS ORDERED: PNEUMOC 13-VAL CONJ-DIP CRM/PF 0.5 ML DISP.SYRIN IM ONE (13:00)
[2021-05-27 14:39] LABS: BILIRUBIN,TOTAL 1.1 mg/dL (0.2-1); BLOOD UREA NITROGEN 10.6 mg/dL (7-18); CREATININE 0.8 mg/dL (0.55-1.3); TOT PROT 7.9 g/dl (6.4-8.2)
[2021-05-27] MEDS: chlordiazePOXIDE HCL 25 MG CAPSULE PO SCH ×2 (18:38→22:58)
[2021-05-27 18:53] LABS: HIV INTERPRETATION NEGATIVE (NEGATIVE)
[2021-05-27] MEDS: THIAMINE HCL 100 MG TABLET (FP) PO SCH (22:45)
[2021-05-27] MEDS: MELATONIN 5 MG TABLETS PO PRN (22:45)
[2021-05-28] MEDS: chlordiazePOXIDE HCL 25 MG CAPSULE PO SCH ×4 (06:11→22:56)
[2021-05-28] MEDS: hydrOXYzine PAMOATE 25 MG CAPSULE (FP) PO PRN ×3 (10:08→22:56)
[2021-05-28] MEDS: METHOCARBAMOL 500 MG TABLET PO PRN ×2 (10:08→22:58)
[2021-05-28] MEDS: PRENATAL VITAMINS W/ FOLIC ACID TABLET (FP) PO SCH (10:08)
[2021-05-28] MEDS: FUROSEMIDE 40 MG TABLET (FP) PO SCH (12:11)
[2021-05-28 14:07] LABS: SARS-CoV-2 NAA Not Detected (Not Detected)
[2021-05-28] MEDS: ACETAMINOPHEN 325 MG TABLET (FP) PO PRN (18:55)
[2021-05-28] MEDS: THIAMINE HCL 100 MG TABLET (FP) PO SCH (22:56)
[2021-05-28] MEDS: MELATONIN 5 MG TABLETS PO PRN (22:56)
[2021-05-29] MEDS ORDERED: chlordiazePOXIDE HCL 10 MG CAPSULE PO PRN
[2021-05-29] MEDS: METHOCARBAMOL 500 MG TABLET PO PRN ×3 (05:57→18:06)
[2021-05-29] MEDS: chlordiazePOXIDE HCL 10 MG CAPSULE PO SCH ×4 (05:57→22:16)
[2021-05-29] MEDS: hydrOXYzine PAMOATE 25 MG CAPSULE (FP) PO PRN (10:43)
[2021-05-29] MEDS: FUROSEMIDE 40 MG TABLET (FP) PO SCH (10:44)
[2021-05-29] MEDS: PRENATAL VITAMINS W/ FOLIC ACID TABLET (FP) PO SCH (11:01)
[2021-05-29] MEDS: MELATONIN 5 MG TABLETS PO PRN (22:16)
[2021-05-29] MEDS: THIAMINE HCL 100 MG TABLET (FP) PO SCH (22:16)
[2021-05-30] MEDS: chlordiazePOXIDE HCL 10 MG CAPSULE PO SCH ×2 (05:43→17:55)
[2021-05-30] MEDS: PRENATAL VITAMINS W/ FOLIC ACID TABLET (FP) PO SCH (10:57)
[2021-05-30] MEDS: hydrOXYzine PAMOATE 25 MG CAPSULE (FP) PO PRN ×2 (10:58→22:20)
[2021-05-30] MEDS: METHOCARBAMOL 500 MG TABLET PO PRN ×2 (10:58→22:21)
[2021-05-30 11:44] LABS: HEMATOCRIT 29.1 % (35.4-49); HEMOGLOBIN 9.8 GM/dL (11.7-16.9); MCH 32.6 pg (25.7-33.7); MCHC 33.6 g/dl (32.0-35.9); MEAN CELL VOLUME 97.1 fl (80-96); RDW 17.1 % (11.9-15.9); WHITE BLOOD COUNT 5.7 K/mm3 (4.0-10.0)
[2021-05-30] MEDS ORDERED: FUROSEMIDE 20 MG TABLET (FP) PO SCH (11:45)
[2021-05-30] MEDS: FUROSEMIDE 40 MG TABLET (FP) PO SCH (11:56)
[2021-05-30 13:14] LABS: ANISOCYTOSIS 0; MACROCYTOSIS 0; PLATELET COUNT 32 10^3/uL (134-434); PLATELET ESTIMATE DECREASED
[2021-05-30] MEDS: MELATONIN 5 MG TABLETS PO PRN (22:19)
[2021-05-30] MEDS: THIAMINE HCL 100 MG TABLET (FP) PO SCH (22:20)
[2021-05-31] MEDS ORDERED: chlordiazePOXIDE HCL 10 MG CAPSULE PO ONE (05:00)
[2021-05-31 09:51] VITALS: BP 112/60; PULSE 66; TEMP 96.9
[2021-05-31] MEDS: PRENATAL VITAMINS W/ FOLIC ACID TABLET (FP) PO SCH (11:24)
== END 2021-05-31 10:02 | disposition other institution (70) | DRG 897 ==
LOC: YASAS 14:44 → Y6N 19:26
PROVIDERS: ADMIT Allergy & Immunology; ATTEND Allergy & Immunology
PROC: HZ2ZZZZ Detoxification Services for Substance Abuse Treatment (ICD-10-PCS; principal; 2021-05-26)
DX: F10.230 Alcohol dependence with withdrawal, uncomplicated (principal); F14.20 Cocaine dependence, uncomplicated; D61.818 Other pancytopenia; F17.213 Nicotine dependence, cigarettes, with withdrawal; I50.9 Heart failure, unspecified; J45.909 Unspecified asthma, uncomplicated; A53.0 Latent syphilis, unspecified as early or late; Z86.19 Personal history of other infectious and parasitic diseases; Z59.00 Homelessness unspecified
CPT/HCPCS: 36415; 71045-TC-FY; 80053; 82607; 82746; 83540; 83550; 85025; 85027; 86593; 86780; 87389; 90732; C9803; G0009; U0003; U0005

== ENCOUNTER 2021-08-04 14:35 | Inpatient (IN) | payer OTHER ==
[2021-08-04] MEDS ORDERED: ACETAMINOPHEN 325 MG TABLET (FP) PO PRN ×2 (15:56)
[2021-08-04] MEDS ORDERED: METHOCARBAMOL 500 MG TABLET PO PRN (15:56)
[2021-08-04] MEDS ORDERED: ONDANSETRON *ODT* 4 MG TABLET SL PRN (15:56)
[2021-08-04] MEDS ORDERED: DICYCLOMINE HCL 10 MG CAPSULE PO PRN (15:56)
[2021-08-04] MEDS ORDERED: BENZOCAINE/MENTHOL (CHLORASEPTIC ) LOZENGE MM PRN (15:56)
[2021-08-04] MEDS ORDERED: NICOTINE 10 MG CARTRIDGE (INHALER) IH PRN (15:56)
[2021-08-04] MEDS ORDERED: LOPERAMIDE HCL 2 MG CAPSULE PO PRN (15:56)
[2021-08-04] MEDS ORDERED: MAG HYDROX/AL HYDROX/SIMETH 30 ML UNIT-DOSE CUP PO PRN (15:56)
[2021-08-04] MEDS ORDERED: MAGNESIUM CITRATE 300 ML BOTTLE PO PRN (15:56)
[2021-08-04] MEDS ORDERED: BISMUTH SUBSALICYLATE 524 MG/30 ML PO PRN (15:56)
[2021-08-04] MEDS ORDERED: IBUPROFEN 400 MG TABLET (FP) PO PRN (15:56)
[2021-08-04] MEDS ORDERED: chlordiazePOXIDE HCL 25 MG CAPSULE PO PRN (15:56)
[2021-08-04] MEDS ORDERED: MAGNESIUM HYDROX 2400MG/30ML ORAL SUSPENSION 30 ML CUP PO PRN (15:56)
[2021-08-04] MEDS ORDERED: ALBUTEROL SO4 HFA INHALER IH PRN (15:59)
[2021-08-04] MEDS: PRENATAL VITAMINS W/ FOLIC ACID TABLET (FP) PO SCH (19:39)
[2021-08-04] MEDS: hydrOXYzine PAMOATE 25 MG CAPSULE (FP) PO SCH ×2 (19:39→23:02)
[2021-08-04] MEDS: FUROSEMIDE 40 MG TABLET (FP) PO SCH (19:39)
[2021-08-04] MEDS: THIAMINE HCL 100 MG TABLET (FP) PO SCH (23:02)
[2021-08-04] MEDS: chlordiazePOXIDE HCL 25 MG CAPSULE PO SCH (23:02)
[2021-08-04] MEDS: MELATONIN 5 MG TABLETS PO SCH (23:02)
[2021-08-05] MEDS: hydrOXYzine PAMOATE 25 MG CAPSULE (FP) PO SCH ×5 (05:35→22:47)
[2021-08-05] MEDS: chlordiazePOXIDE HCL 25 MG CAPSULE PO SCH ×4 (05:35→22:47)
[2021-08-05] MEDS: FUROSEMIDE 40 MG TABLET (FP) PO SCH (10:32)
[2021-08-05] MEDS: PRENATAL VITAMINS W/ FOLIC ACID TABLET (FP) PO SCH (10:32)
[2021-08-05 12:22] LABS: ALBUMIN 2.7 g/dl (3.4-5.0); BLOOD UREA NITROGEN 10.4 mg/dL (7-18); CALCIUM 8.3 mg/dL (8.5-10.1)
[2021-08-05 12:25] LABS: CREATININE 0.9 mg/dL (0.55-1.3); HEMATOCRIT 33.7 % (35.4-49); HEMOGLOBIN 11.1 GM/dL (11.7-16.9); MCH 31.7 pg (25.7-33.7); MCHC 32.9 g/dl (32.0-35.9); MEAN CELL VOLUME 96.2 fl (80-96); MEAN PLT VOLUME 11.8 fl (7.5-11.1); PLATELET COUNT 42 10^3/uL (134-434); RDW 16.5 % (11.9-15.9); WHITE BLOOD COUNT 4.9 K/mm3 (4.0-10.0)
[2021-08-05 12:27] LABS: BILIRUBIN,TOTAL 0.6 mg/dL (0.2-1); TOT PROT 6.5 g/dl (6.4-8.2)
[2021-08-05] MEDS: THIAMINE HCL 100 MG TABLET (FP) PO SCH (22:47)
[2021-08-05] MEDS: MELATONIN 5 MG TABLETS PO SCH (22:47)
[2021-08-06] MEDS: hydrOXYzine PAMOATE 25 MG CAPSULE (FP) PO SCH ×5 (06:14→23:09)
[2021-08-06] MEDS: chlordiazePOXIDE HCL 25 MG CAPSULE PO SCH ×4 (06:15→23:10)
[2021-08-06] MEDS: FUROSEMIDE 40 MG TABLET (FP) PO SCH (10:12)
[2021-08-06] MEDS: POTASSIUM CHLORIDE ORAL LIQUID 20 MEQ/15 ML PO SCH ×2 (10:12→23:09)
[2021-08-06] MEDS: PRENATAL VITAMINS W/ FOLIC ACID TABLET (FP) PO SCH (10:12)
[2021-08-06 13:07] LABS: SARS-CoV-2 NAA Not Detected (Not Detected)
[2021-08-06] MEDS: FERROUS SO4 325 MG TABLET (FP) PO SCH ×2 (15:18→19:16)
[2021-08-06] MEDS ORDERED: CALCIUM 500MG/VIT-D 200 UNITS COMBO TABLET (FP) PO SCH (22:00)
[2021-08-06] MEDS: MELATONIN 5 MG TABLETS PO SCH (23:07)
[2021-08-06] MEDS: THIAMINE HCL 100 MG TABLET (FP) PO SCH (23:09)
[2021-08-07] MEDS ORDERED: chlordiazePOXIDE HCL 10 MG CAPSULE PO PRN
[2021-08-07] MEDS: chlordiazePOXIDE HCL 10 MG CAPSULE PO SCH ×2 (06:43→10:28)
[2021-08-07] MEDS: hydrOXYzine PAMOATE 25 MG CAPSULE (FP) PO SCH ×2 (06:43→09:09)
[2021-08-07] MEDS: FERROUS SO4 325 MG TABLET (FP) PO SCH (08:06)
[2021-08-07 08:55] VITALS: BP 99/62; PULSE 60; TEMP 97.3
[2021-08-07] MEDS: PRENATAL VITAMINS W/ FOLIC ACID TABLET (FP) PO SCH (09:09)
[2021-08-07] MEDS: POTASSIUM CHLORIDE ORAL LIQUID 20 MEQ/15 ML PO SCH (09:09)
[2021-08-07] MEDS: FUROSEMIDE 40 MG TABLET (FP) PO SCH (09:09)
[2021-08-08] MEDS ORDERED: chlordiazePOXIDE HCL 10 MG CAPSULE PO SCH (05:00)
[2021-08-09] MEDS ORDERED: chlordiazePOXIDE HCL 10 MG CAPSULE PO ONE (05:00)
== END 2021-08-07 09:34 | disposition left against medical advice (07) | DRG 894 ==
LOC: YASAS 14:35 → Y3N 18:01
PROVIDERS: ADMIT Allergy & Immunology; ATTEND Allergy & Immunology
PROC: HZ2ZZZZ Detoxification Services for Substance Abuse Treatment (ICD-10-PCS; principal; 2021-08-04)
DX: F10.230 Alcohol dependence with withdrawal, uncomplicated (principal); F14.20 Cocaine dependence, uncomplicated; F17.210 Nicotine dependence, cigarettes, uncomplicated; E78.5 Hyperlipidemia, unspecified; I11.0 Hypertensive heart disease with heart failure; I50.9 Heart failure, unspecified; J45.909 Unspecified asthma, uncomplicated; B35.3 Tinea pedis; R79.89 Other specified abnormal findings of blood chemistry; Z86.19 Personal history of other infectious and parasitic diseases
CPT/HCPCS: 36415; 80053; 84132; 85027; 86593; 86780; C9803-CS; U0003; U0005